=== PATIENT | female | born 1955 | race Caucasian/White ===

== ENCOUNTER 2018-01-14 09:13 | Emergency (ER) | payer SELFPAY ==
[~2018-01-14] VITALS: Ht 172.7 cm; Wt 69.0 kg
[~2018-01-14 09:13] MED LIST: ALBU90OI61 INH; BUDE200IP IH; CYCL10 PO; METO50 PO; METO50ER PO; NAPR500 PO; NITR100CA PO; PHENA200 PO; Roxicodone5 MG PO; SULTRIDS PO
== END 2018-01-14 11:33 | disposition home or self-care (01) ==
LOC: ER 09:13
DX: S52.124A Nondisplaced fracture of head of right radius, initial encounter for closed fracture (principal); J44.9 Chronic obstructive pulmonary disease, unspecified; Z88.6 Allergy status to analgesic agent; Z79.899 Other long term (current) drug therapy; W01.0XXA Fall on same level from slipping, tripping and stumbling without subsequent striking against object, initial encounter
CPT/HCPCS: 29105; 73080; 73090; 99283-25